=== PATIENT | female | born 1970 | race Caucasian/White ===

== ENCOUNTER → 2016-08-07 | Outpatient (CLI) | payer OTHER ==
[~2016-08-07] MED LIST: AMIT25TA9 PO; AMLO-114 PO; AMPH10TA2 PO; ASPEC81 PO; ATV5 PO; CTP/1 PO; DRGTP25 TD; HYDR-5688 PO; HYG/25 PO; LSN40 PO; MTR600 PO; NEBI10TA2 PO; OXYC-57 PO; PRAV20TA PO; SM350 PO; ZOLP5TAB PO
[2016-08-07 11:10] LABS: HEMATOCRIT 38.6 % (37-47); MEAN CELL VOLUME 92.3 fL (80-100); MEAN CORPUSCULAR HEMOGLOBIN 31.3 pg (25-34); MEAN CORPUSCULAR HGB CONC 33.9 g/dl (32-36); MEAN PLATELET VOLUME 11.1 fL (7.4-10.4); PLATELET COUNT 248 K/uL (130-400); RED BLOOD COUNT 4.18 M/uL (4.2-5.4); WHITE BLOOD COUNT 6.13 K/uL (4.8-10.8)
[2016-08-07 14:05] LABS: URINE COLLECTION TIME 24 HOURS; URINE SODIUM 24 HR 231 mmol/24 (40-220)
== END | disposition home or self-care (01) ==
LOC: C.LABBC 08:21
PROVIDERS: ATTEND Internal Medicine Nephrology
DX: I10 Essential (primary) hypertension (principal); G43.909 Migraine, unspecified, not intractable, without status migrainosus; E55.9 Vitamin D deficiency, unspecified; Z68.38 Body mass index [BMI] 38.0-38.9, adult

== ENCOUNTER 2017-05-19 00:32 | Inpatient (IN) | payer SELFPAY ==
[~2017-05-19] VITALS: Ht 167.6 cm; Wt 99.5 kg
[~2017-05-19 00:32] MED LIST changes: -AMIT25TA9 PO; -ATV5 PO; -DRGTP25 TD; -HYDR-5688 PO; -MTR600 PO; -OXYC-57 PO
[2017-05-19] MEDS ORDERED: ONDANSETRON INJ 2 MG/ML 2 ML VIAL IV STA (00:47)
[2017-05-19] MEDS ORDERED: MoRPHine SULFATE 10 MG/ML CARP/VIAL IV STA (00:47)
[2017-05-19] MEDS ORDERED: MoRPHine SULFATE 4 MG/ML 1 ML CARP\\VIAL ONE (00:52)
[2017-05-19] MEDS ORDERED: MoRPHine SULFATE 2 MG/ML CARP ONE (00:52)
[2017-05-19] MEDS ORDERED: KETOROLAC TROMETHAMINE 30 MG/ML VIAL IV STA (01:17)
[2017-05-19] MEDS ORDERED: FENTANYL CITRATE INJ 50 MCG/1 ML 2 ML VIAL IV ONE (01:30)
[2017-05-19] MEDS ORDERED: CYCLOBENZAPRINE HCL 5 MG TAB PO STA (02:29)
[2017-05-19] MEDS ORDERED: ACETAMINOPHEN 325 MG TAB PO PRN (04:00)
[2017-05-19] MEDS ORDERED: ONDANSETRON INJ 2 MG/ML 2 ML VIAL IV PRN (04:00)
[2017-05-19] MEDS ORDERED: POLYETHYLENE (MIRALAX) 17 GM PACK PO PRN (04:00)
[2017-05-19] MEDS ORDERED: ALUMINUM/MAGNESIUM/SIMETH (MAALOX MAX) 30 ML UDC PO PRN (04:00)
[2017-05-19] MEDS ORDERED: SODIUM CHLORIDE 0.9% 1000ML 1,000 ML IV SCH (04:00)
[2017-05-19] MEDS ORDERED: MAGNESIUM HYDROXIDE SUSP 30 ML UDC PO PRN (04:00)
[2017-05-19] MEDS ORDERED: CLONIDINE HCL 0.1 MG TAB PO PRN (04:00)
[2017-05-19] MEDS ORDERED: HYDROmorphone INJ 1 MG/ML SYR IV STA (04:20)
--- NOTE | 2017-05-19 04:38 | History and Physical ---
History & Physical Date & Time of Service: May 19, 2017 at 04:22 Chief Complaint: FALL Primary Care Physician: Ekaterina Milian C.R.NDakotahPDakotah History of Present Illness Source: patient 46 y/o F Hx HTN, HPL, CVA - presents following a slip and fall onto her L side leading to severe pain which is most prominent over her L lower gluteal area. She cannot presently ambulate due to the pain and is having difficulty getting comfortable in any position. She denies any symptoms preceding her fall such as CP, palpitations or lightheadedness. A pelvic XR is presently equivocal for an inferior pelvic fracture and clinical exam may be more consistent with a muscle or tendon injury. 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, between nursing jobs presently Smoking Status: Current Every Day Smoker Drug Use: none Marital Status: Housing status: lives with family Occupational Status: employed Allergies Coded Allergies: Moxifloxacin (Verified Allergy, Severe, anaphylatic, 07/09/16) Quinolones (Unverified Allergy, Severe, ANAPHYLAXIS, 07/09/16) Home Medications Scheduled Amlodipine (Norvasc), 10 MG PO DAILY Amphetamine-Dextroamphetamine 10MG (Adderall 10MG), 1 TAB PO DAILY Aspirin (Aspirin EC Low Dose), 81 MG PO QAM Chlorthalidone (Hygroton), 25 MG PO QAM Lisinopril (Lisinopril), 20 MG PO BID Nebivolol Hcl (Bystolic), 10 MG PO DAILY Pravastatin (Pravachol ), 20 MG PO HS Scheduled PRN Carisoprodol (Carisoprodol), 350 MG PO Q8H PRN for muscle pain/headache Clonidine Hcl (Catapres), 0.1 MG PO BID PRN for PRN Zolpidem Tartrate (Ambien), 5-10 MG PO HS PRN for Sleep Review of Systems Constitutional: No fever, No chills, No sweats Eyes: No worsening of vision ENT: No hearing loss, No unusual epistaxis, No nasal symptoms Respiratory: No cough, No sputum, No wheezing Cardiovascular: No chest pain, No orthopnea, No PND Abdomen: No pain, No nausea, No vomiting Musculoskeletal: + joint pain, + muscle pain (sever LE pain as above) Genitourinary - Female: No dysuria, No urinary frequency Neurologic: No memory loss, No paralysis, No weakness Psychiatric: No depression symptoms Endocrine: No fatigue Hematologic / Lymphatic: No abnormal bleeding/bruising Integumentary: No rash Allergic / Immunologic: No environmental allergies Physical Exam Vital Signs Date Time Temp Pulse Resp B/P (MAP) Pulse Ox O2 Delivery O2 Flow Rate FiO2 05/19/17 02:39 60 20 168/95 96 Room Air 05/19/17 01:28 82 20 151/97 98 Room Air 05/19/17 00:41 37.1 95 20 207/117 96 Room Air General Appearance: WD/WN, no apparent distress Head: normocephalic Eyes: normal inspection ENT: normal ENT inspection, pharynx normal Neck: supple, no JVD Respiratory/Chest: chest non-tender, lungs clear, normal breath sounds Cardiovascular: regular rate, rhythm, no edema, no gallop Abdomen/GI: normal bowel sounds, non tender, soft Back: normal inspection, no CVA tenderness Extremities/Musculoskelatal: + pertinent finding (Pain on any movement of L leg ) 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 She cannot presently ambulate due to the pain and is having difficulty getting comfortable in any position. She denies any symptoms preceding her fall such as CP, palpitations or lightheadedness. A pelvic XR is presently equivocal for an inferior pelvic fracture and clinical exam may be more consistent with a muscle or tendon injury. 1) Fall and pelvic/gluteal injury - We may need an MRI for further evaluation. To avoid additional expenses however, we will consult orthopedics to determine if additional imaging is needed and advise on the appropriate study. She will be provided with adequate pain control and may need PT/OT or rehab if she is unable to recover mobility in the short-term. 2) HTN - has been difficult to control - will remain on all current meds pending surgery eval 3) HPL - cont 4) Smoker - cessation advice prior to DC Full Code - SCDs Total time for this admit including review of labs, meds, imaging - discussion with pt and ER attending - 33min Level of Care Med/Surg Resuscitation Status FULL RESUSCITATION VTE Prophylaxis VTE Risk Assessment Done? Y/N: Yes Risk Level: Low Given or contraindicated: SCD's
[2017-05-19] MEDS ORDERED: AMIT25TA9 PO (04:58)
[2017-05-19] MEDS ORDERED: IV FLUIDS COMPLETED PRN (05:00)
[2017-05-19] MEDS ORDERED: OXYCODONE/ACETAMINOPHEN 10/325MG TAB PO ONE (05:30)
[2017-05-19 06:17] VITALS: BP 142/76; PULSE 66; TEMP 36.4; O2SAT 96; Ht 167.6 cm; Wt 99.5 kg
[2017-05-19 07:14] VITALS: BP 115/73; PULSE 58; TEMP 36.6; O2SAT 96
[2017-05-19 08:00] VITALS: O2SAT 96
[2017-05-19] MEDS ORDERED: PNEUMOCOCCAL POLYSACCHARIDES 25 MCG/0.5 ML VIAL/SYR IM. ONE (08:00)
[2017-05-19] MEDS ORDERED: PNEUMOCOCCAL ADMINISTRATION CHARGE ONE (08:00)
--- NOTE | 2017-05-19 08:01 | DIAGNOSTIC IMAGING REPORT ---
PELVIS 1 OR 2 VIEW ROUTINE CLINICAL HISTORY: eval left hemipelvis for fracture. Left hip pain. COMPARISON STUDY: None. FINDINGS: No acute fracture or dislocation within the pelvis or hips. The sacrum appears intact. Soft tissues are unremarkable. Lucency overlying the medial aspect of the left inferior pubic ramus appears to be due to overlying soft tissue. IMPRESSION: No acute fracture or dislocation within the pelvis or hips. Electronically signed by: Zhou Le M.D. 05/19/2017 8:00 AM Dictated Date/Time: 05/19/2017 7:59 AM
--- NOTE | 2017-05-19 08:53 | EMERGENCY ROOM VISIT NOTE ---
History Report prepared by Isabella: Princess Aaron Under the Supervision of: Dr. Gem Sosa D.O. First contact with patient: 00:36 Chief Complaint: FALL Stated Complaint: FALL History of Present Illness The patient is a 46 year old female who presents to the Emergency Room with complaints of an episode of a fall occurring just prior to arrival. The patient reports that she went to let the dog out and slipped. She reports her left leg slid out and right leg stayed put. She reports it was similar to falling into a split. The patient states that it is worse with movement. She reports that she cannot straighten her leg or turn on her side. She states that the pain is in the back of her leg under her butt cheek. She states it shoots down her leg. The patient denies pain in her foot, ankle, hip, and abdomen. She states that she did not hit her head. She notes that she takes Lisinopril. She reports that she last ate 7 hours ago and had a little bit of water to drink since then. Source of History: patient Onset: prior to arrival Position: other (global) Quality: other (shooting) Timing: other (episode) Modifying Factors (Worsening): movement Associated Symptoms: No abdominal pain Note: The patient denies pain in her ankle, foot, and knee. Review of Systems See HPI for pertinent positives & negatives. A total of 10 systems reviewed and were otherwise negative. Past Medical & Surgical Medical Problems: (1) Anxiety (2) Anxiety attack (3) ARF (acute renal failure) (4) Asthma, Unspecified (5) Cervical cancer (6) Chest pain (7) Depression (8) Depression (9) Depression (10) Epistaxis, recurrent (11) Hyperlipidemia Nec/Nos (12) Hypertension Nos (13) PCOS (polycystic ovarian syndrome) (14) Pelvic fracture (15) Stress (16) Uncontrolled hypertension, stage 1 (17) Uterine cancer Surgical Problems: (1) H/O: hysterectomy (2) History of breast mammoplasty (3) Hx of cholecystectomy (4) S/P tonsillectomy and adenoidectomy Family History Cancer Diabetes mellitus Heart disease Hypertension Kidney disease Kidney stones Lung disease Social History Smoking Status: Current Every Day Smoker Alcohol Use: none Drug Use: none Marital Status: Housing Status: lives with family Occupation Status: employed Current/Historical Medications Scheduled Amlodipine (Norvasc), 10 MG PO DAILY Amphetamine-Dextroamphetamine 10MG (Adderall 10MG), 1 TAB PO DAILY Aspirin (Aspirin EC Low Dose), 81 MG PO QAM Chlorthalidone (Hygroton), 25 MG PO QAM Lisinopril (Lisinopril), 20 MG PO BID Nebivolol Hcl (Bystolic), 10 MG PO DAILY Pravastatin (Pravachol ), 20 MG PO HS Scheduled PRN Amitriptyline Hcl (Elavil), 25 MG PO HS PRN for Migraine Carisoprodol (Carisoprodol), 350 MG PO Q8H PRN for muscle pain/headache Clonidine Hcl (Catapres), 0.1 MG PO BID PRN for PRN Zolpidem Tartrate (Ambien), 5-10 MG PO HS PRN for Sleep Allergies Coded Allergies: Moxifloxacin (Verified Allergy, Severe, anaphylatic, 07/09/16) Quinolones (Unverified Allergy, Severe, ANAPHYLAXIS, 07/09/16) Physical Exam Vital Signs Date Time Temp Pulse Resp B/P (MAP) Pulse Ox O2 Delivery O2 Flow Rate FiO2 05/19/17 03:30 20 20 165/97 99 Nasal Cannula 2.0 05/19/17 02:39 60 20 168/95 96 Room Air 05/19/17 01:28 82 20 151/97 98 Room Air 05/19/17 00:41 37.1 95 20 207/117 96 Room Air Physical Exam Heart: Tachycardic rate and regular rhythm. There is a normal S1 and S2 with no murmurs, clicks, or gallops appreciated. Lungs: Clear to auscultation bilaterally with no wheezes, rales, or rhonchi. Abdomen: Soft, completely nontender, nondistended, with good bowel sounds. There are no palpable pulsatile masses or hepatosplenomegaly. There is no guarding, rigidity, or rebound noted. Extremities: The patient holds the left hip and flexion as well as the left knee in flexion for comfort. No evidence of cyanosis, clubbing, or edema. There are easily palpable peripheral pulses. Severe pain in the area of the proximal insertion of hamstrings on the left. Skin: warm and dry with good turgor and no rashes. Medical Decision & Procedures ER Provider Diagnostic Interpretation: PELVIS X-RAY: Results were interpreted by me. No obvious fractures identified. Medications Administered Medications (Trade) Dose Ordered Sig/Mayur Route Start Time Stop Time Status Last Admin Dose Admin Ondansetron HCl (Zofran Inj) 4 mg NOW STAT IV 05/19/17 00:47 05/19/17 00:49 DC 05/19/17 00:56 4 MG Morphine Sulfate (MoRPHine SULFATE INJ) 2 mg STK-MED ONCE .ROUTE 05/19/17 00:52 05/19/17 00:53 DC 05/19/17 00:57 2 MG Morphine Sulfate (MoRPHine SULFATE INJ) 4 mg STK-MED ONCE .ROUTE 05/19/17 00:52 05/19/17 00:53 DC 05/19/17 00:56 4 MG Ketorolac Tromethamine (Toradol Inj) 30 mg NOW STAT IV 05/19/17 01:17 05/19/17 01:18 DC 05/19/17 01:25 30 MG Fentanyl Citrate (Fentanyl Inj) 100 mcg NOW ONCE IV 05/19/17 01:30 05/19/17 01:31 DC 05/19/17 01:26 100 MCG Cyclobenzaprine HCl (Flexeril Tab) 10 mg NOW STAT PO 05/19/17 02:29 05/19/17 02:31 DC 05/19/17 02:36 10 MG Procedure 0047: Ordered Zofran Inj 4 mg IV. 0052: Ordered Morphine Sulfate 4 mg IV, Morphine Sulfate 2 mg IV. 0117: Ordered Toradol Inj 30 mg IV. 0130: Ordered Fentanyl Inj 100 mcg IV. 0229: Ordered Flexeril Tab 10 mg PO. ED Course 0044: Past medical records reviewed. The patient was evaluated in room B8. A complete history and physical exam was performed. 0047: Ordered Zofran Inj 4 mg IV. 0052: Ordered Morphine Sulfate 4 mg IV, Morphine Sulfate 2 mg IV. 0117: Ordered Toradol Inj 30 mg IV. 0130: Ordered Fentanyl Inj 100 mcg IV. 0139: I went to reevaluate the patient and she is currently in x-ray. 0211: I reevaluated the patient and she has some pain relief. I went over the x- ray with her. She has exquisite tenderness at the base of the left buttock. There is no ecchymosis. I discussed the possibility of having an MRI of the left lower extremity but the patient declined stating that she does not have insurance at this time. She would like to go home. 0229: Ordered Flexeril Tab 10 mg PO. 0311: I reevaluated the patient and she continues to have severe pain. I do not think that the patient be discharged as she would not be able to ambulate. 0418: Discussed the patient's case with Dr. Cano. The patient will be evaluated for further management. Medical Decision This is a 46-year-old female patient presents to the emergency department with severe proximal posterior left lower extremity pain. Differential diagnoses include pelvis fracture, hamstring rupture, femur fracture. The patient slipped on will while wearing slippers into a split position. She had very sudden and severe onset of pain just needs the left buttock over the proximal hamstring on the left. On physical exam, it seems consistent with an acute rupture of the left hamstring. On x-ray, there were no obvious fractures. We could not get the patient comfortable and therefore she required inpatient care and orthopedic evaluation. Consults Time Called: 330 Consulting Physician: Dr. Cano Returned Call: [phone] Discussed the patient's case with Dr. Cano. The patient will be evaluated for further management. Impression Primary Impression: Lower extremity pain, left Additional Impression: Hamstring tear Scribe Attestation The scribe's documentation has been prepared under my direction and personally reviewed by me in its entirety. I confirm that the note above accurately reflects all work, treatment, procedures, and medical decision making performed by me. Departure Information Dispostion Being Evaluated By Hospitalist Referrals No Doctor, Assigned (PCP) Patient Instructions My [facility] Problem Qualifiers
[2017-05-19] MEDS: LISINOPRIL 20 MG TAB PO SCH ×2 (09:00→21:37)
[2017-05-19] MEDS: AMLODIPINE BESYLATE 5 MG TAB PO SCH (09:00)
[2017-05-19] MEDS: NEBIVOLOL HCL 5 MG TAB PO SCH (09:00)
[2017-05-19] MEDS: CHLORTHALIDONE 25 MG TAB PO SCH (09:00)
[2017-05-19] MEDS: ASPIRIN 81 MG ECTAB PO SCH (09:17)
--- NOTE | 2017-05-19 09:31 | Medical Consult ---
Consultation Note Date of Service May 19, 2017. Consultation Note CHIEF COMPLAINT: Left hip pain. HISTORY OF PRESENT ILLNESS: Ayesha is a pleasant 46-year-old female, who slipped and fell last evening injuring her left lower leg. She has an extensive medical history and notes that this is the most painful injury she is ever had. She was unable to get up and had initial pain pointing to the posterior aspect of her hip and thigh with radiation all the way down to her foot. Currently she just has pain if she attempts to extend her knee, straightening out the leg. She is more comfortable with the blankets piled up under her leg. She went to the emergency room where an x-ray was obtained and she was admitted for pain control. I was consult did to rule out a fracture. PAST MEDICAL HISTORY: (1) Anxiety (2) Asthma, Unspecified (3) Cervical cancer (4) CVA - no residuals (5) Depression (6) Epistaxis, recurrent (7) Hyperlipidemia Nec/Nos (8) Hypertension Nos (9) PCOS (polycystic ovarian syndrome) (10) Uterine cancer PAST SURGICAL HISTORY: (1) H/O: hysterectomy (2) History of breast mammoplasty (3) Hx of cholecystectomy (4) S/P tonsillectomy and adenoidectomy FAMILY HISTORY: Cancer, Diabetes mellitus, Heart disease, Hypertension, Kidney disease, Kidney stones, Lung disease SOCIAL HISTORY: -alcohol, between nursing jobs presently. Smoking Status: Current Every Day Smoker Drug Use: none Marital Status: Housing status: lives with family ALLERGIES: Moxifloxacin (Verified Allergy, Severe, anaphylatic, 07/09/16) Quinolones (Unverified Allergy, Severe, ANAPHYLAXIS, 07/09/16) MEDICATIONS: Home Scheduled: Amlodipine (Norvasc), 10 MG PO DAILY Amphetamine-Dextroamphetamine 10MG (Adderall 10MG), 1 TAB PO DAILY Aspirin (Aspirin EC Low Dose), 81 MG PO QAM Chlorthalidone (Hygroton), 25 MG PO QAM Lisinopril (Lisinopril), 20 MG PO BID Nebivolol Hcl (Bystolic), 10 MG PO DAILY Pravastatin (Pravachol ), 20 MG PO HS Scheduled PRN Carisoprodol (Carisoprodol), 350 MG PO Q8H PRN for muscle pain/headache Clonidine Hcl (Catapres), 0.1 MG PO BID PRN for PRN Zolpidem Tartrate (Ambien), 5-10 MG PO HS PRN for Sleep REVIEW OF SYSTEMS: The patient was feeling in her usual state of health before the fall last evening. The ER A 10-point review of systems is noted in the shared Hospital medical record. PHYSICAL EXAM: Patient is in no acute distress breathing easily at 18 breaths per minute. The patient resting comfortably in her hospital bed. They have an appropriate mood and affect. They weigh 99.5 kg and are 167.6 cm tall. Focusing on her left lower extremity, she has blankets piled up keeping her knee flexed as well as her hip. Her sensation to light touch is intact distally , her motor to her gastrocsoleus, tibialis anterior, and EHL is 5/5. Her calf is soft and nontender. She has no pain in the groin with gentle range of motion of her hip, but does have pain along the course of her hamstrings. There is no bruising. Unable to palpate a defect in the hamstring. RADIOGRAPHS: AP pelvis shows no evidence of acute fracture or dislocation. IMPRESSION: Left hamstring strain. PLAN: After a lengthy discussion with the patient today regarding my above clinical findings, as well as reviewing her radiograph, she will initially be treated conservatively with ice (20 minutes on, 40 minutes off), anti- inflammatories, and pain medicine. Additional x-rays AP and lateral of the left hip will be obtained to ensure that there is no fracture. She will likely require bracing to help keep for her knee flexed. In addition we discussed outpatient studies they could be performed either MRI which is more expensive versus ultrasound, understanding that she is currently between jobs and is uninsured. We will have social welfare research worker talk to her as well to see if she qualifies for COBRA or medical assistance. Once the x-rays are evaluated and determined to be negative and she obtains her brace, she could start PT/OT. I will continue to follow the patient on she is in the hospital. The patient understood all my instructions and explanation; all their questions were satisfactorily addressed. Thank you for allowing me to participate in this patient's care.
[2017-05-19] MEDS: HYDROmorphone INJ 0.5 MG/0.5 ML SYR IV PRN ×4 (09:36→22:57)
--- NOTE | 2017-05-19 10:04 | Progress Note ---
Subjective Date of Service: May 19, 2017. Subjective Pt evaluation today including: conversation w/ patient, physical exam, lab review, review of studies, conversation w/ jewelry consultant, review of inpatient medication list Pain: moderate to severe at times PO Intake: adequate Voiding: no voiding problems patient laying in bed, feels better with pillows and blankets under left leg appreciate consultation from Dr. Dickens, plan for hip x-rays, leg brace, ice, ibuprofen, PT/OT other than left leg and buttock pain, patient doing well, no chest pain or dyspnea Problem List Medical Problems: (1) BJ (acute kidney injury) Status: Acute (2) Asthma, Unspecified Status: Chronic (3) Chest tightness Status: Acute (4) Hamstring tear Status: Acute (5) HTN (hypertension) Status: Acute (6) Hyperlipidemia Nec/Nos Status: Chronic (7) Hypertension Status: Acute (8) Hypertension Nos Status: Chronic (9) Hypotension Status: Acute (10) Lower extremity pain, left Status: Acute (11) PCOS (polycystic ovarian syndrome) Status: Chronic (12) Syncope Status: Acute Review of Systems Musculoskeletal: + joint pain (left hip and buttock and left posterior thigh) All Other Systems: Reviewed and Negative Medications Current Inpatient Medications Medications (Trade) Dose Ordered Sig/Mayur Route Start Time Stop Time Status Last Admin Dose Admin Acetaminophen (Tylenol Tab) 650 mg Q4H PRN PO 05/19/17 04:00 06/18/17 03:59 Al Hydrox/Mg Hydrox/Simethicone (Maalox Max Susp) 15 ml Q4H PRN PO 05/19/17 04:00 06/18/17 03:59 Magnesium Hydroxide (Milk Of Magnesia Susp) 30 ml Q6H PRN PO 05/19/17 04:00 06/18/17 03:59 Polyethylene (Miralax Powder Packet) 17 gm DAILY PRN PO 05/19/17 04:00 06/18/17 03:59 Zolpidem Tartrate (Ambien Tab) 5 mg HSZ PRN PO 05/19/17 04:00 06/18/17 03:59 Ondansetron HCl (Zofran Inj) 4 mg Q6H PRN IV 05/19/17 04:00 06/18/17 03:59 Hydromorphone HCl (Dilaudid Inj) 0.5 mg Q3H PRN IV 05/19/17 04:00 06/02/17 03:59 05/19/17 09:36 0.5 MG Amlodipine Besylate (Norvasc Tab) 10 mg DAILY PO 05/19/17 09:00 06/18/17 08:59 Aspirin (Ecotrin Tab) 81 mg QAM PO 05/19/17 09:00 06/18/17 08:59 05/19/17 09:17 81 MG Carisoprodol (Soma Tab) 350 mg Q8H PRN PO 05/19/17 04:00 06/18/17 03:59 Chlorthalidone (Hygroton Tab) 25 mg QAM PO 05/19/17 09:00 06/18/17 08:59 Clonidine HCl (Catapres Tab) 0.1 mg BID PRN PO 05/19/17 04:00 06/18/17 03:59 Lisinopril (Zestril Tab) 20 mg BID PO 05/19/17 09:00 06/18/17 08:59 Pravastatin Sodium (Pravachol Tab) 20 mg HS PO 05/19/17 21:00 06/18/17 20:59 Nebivolol (Bystolic Tab) 10 mg DAILY PO 05/19/17 09:00 06/18/17 08:59 Sodium Chloride 1,000 ml @ 100 mls/hr Q10H IV 05/19/17 04:00 05/19/17 13:59 05/19/17 05:46 100 MLS/HR Miscellaneous (Iv Fluids Completed) 1 ea PRN PRN N/A 05/19/17 05:00 05/19/18 04:59 Oxycodone/ Acetaminophen (Percocet 5-325mg Tab) 1 tab Q4H PRN PO 05/19/17 09:15 06/02/17 09:14 Ibuprofen (Motrin Tab) 600 mg TID PO 05/19/17 14:00 06/02/17 23:55 Objective Vital Signs Date Time Temp Pulse Resp B/P (MAP) Pulse Ox O2 Delivery O2 Flow Rate FiO2 05/19/17 07:14 36.6 58 18 115/73 (87) 96 Room Air 05/19/17 06:17 36.4 66 18 142/76 96 Room Air 05/19/17 04:50 78 20 141/82 96 Room Air 05/19/17 03:30 20 20 165/97 99 Nasal Cannula 2.0 05/19/17 02:39 60 20 168/95 96 Room Air 05/19/17 01:28 82 20 151/97 98 Room Air 05/19/17 00:41 37.1 95 20 207/117 96 Room Air Physical Exam General Appearance: WD/WN, no apparent distress ENT: normal ENT inspection, hearing grossly normal, pharynx normal Neck: supple, no adenopathy, no JVD, trachea midline Respiratory/Chest: chest non-tender, lungs clear, normal breath sounds, no respiratory distress, no accessory muscle use Cardiovascular: regular rate, rhythm, no edema, no gallop, no JVD, no murmur Abdomen: normal bowel sounds, non tender, soft, no organomegaly Extremities: normal range of motion, non-tender, normal inspection, no pedal edema, no calf tenderness Neurologic/Psychiatric: metal drawer II-XII nml as tested, no motor/sensory deficits, alert, normal mood/affect, oriented x 3 Skin: normal color, warm/dry, no rash Assessment and Plan 46 y/o F Hx HTN, HPL, CVA - presents following a slip and fall onto her L side leading to severe pain which is most prominent over her L lower gluteal area. She cannot presently ambulate due to the pain and is having difficulty getting comfortable in any position. She denies any symptoms preceding her fall such as CP, palpitations or lightheadedness. A pelvic XR is presently equivocal for an inferior pelvic fracture and clinical exam may be more consistent with a muscle or tendon injury. 1) Fall and pelvic/gluteal injury appreciate ortho consult from Dr. Dickens, likely hamstring strain treat conservatively with ice, ibuprofen, Percocet PRN, left brace to keep knee flexed and then PT/OT can consider further imaging as outpatient with MRI vs ultrasound if needed, but need to keep cost in mind, between jobs 2) HTN - will likely be elevated due to stress and pain, issues with hypertension in the past continue Norvasc, Lisinopril, Bystolic, Chlorthalidone Hydralazine PRN 3) HPL - cont statin therapy 4) Smoker - cessation advice prior to DC
--- NOTE | 2017-05-19 10:14 | DIAGNOSTIC IMAGING REPORT ---
LEFT HIP 2 VIEWS HISTORY: L hip pain COMPARISON: None. FINDINGS: Suboptimal evaluation the left hip due to the patient's body habitus and overlying soft tissue. No definite acute fracture or dislocation within the left hip. The visualized pelvic bones appear intact. Soft tissues are unremarkable. No radiopaque foreign bodies. IMPRESSION: No definite acute fracture or dislocation within the left hip. Electronically signed by: Zhou Le M.D. 05/19/2017 10:13 AM Dictated Date/Time: 05/19/2017 10:08 AM
[2017-05-19] MEDS: CARISOPRODOL 350 MG TAB PO PRN ×2 (13:03→22:57)
[2017-05-19] MEDS: IBUPROFEN 600 MG TAB PO SCH ×2 (13:39→21:36)
[2017-05-19] MEDS ORDERED: GADAVIST IV PRN (15:15)
[2017-05-19 15:43] VITALS: BP 99/62; PULSE 53; TEMP 36.8; O2SAT 96
--- NOTE | 2017-05-19 15:46 | DIAGNOSTIC IMAGING REPORT ---
MRI OF THE LEFT THIGH WITH AND WITHOUT CONTRAST CLINICAL HISTORY: Suspected hamstring injury. COMPARISON STUDY: Left hip radiographs May 19, 2017. TECHNIQUE: Utilizing 1.5 Jagruti magnet and dedicated coil, multiplanar, multi echo imaging of the left thigh was performed before and after intravenous administration of 9 cc of Gadavist. FINDINGS: Note is made of extensive edema with suspected hemorrhage along the proximal left hamstring tendon which involves the biceps femoris, semitendinosus and semimembranosus. Tendons are avulsed from the ischial tuberosity and retracted 5 cm inferiorly. There is extensive associated intramuscular edema. No fracture is identified on this examination. Alignment of the left hip is anatomic. There is no left hip joint effusion. There is no suspicious marrow replacement or marrow edema. IMPRESSION: Findings consistent with proximal left hamstrings tendon rupture, as described above. Tendons retracted 5 cm inferiorly with extensive associated edema/hemorrhage. Electronically signed by: Irving Brice M.D. 05/19/2017 3:44 PM Dictated Date/Time: 05/19/2017 3:37 PM
[2017-05-19] MEDS: OXYCODONE/ACETAMINOPHEN 5-325 TAB PO PRN (18:44)
[2017-05-19] MEDS: ZOLPIDEM TARTRATE 5 MG TAB PO PRN (18:44)
[2017-05-19] MEDS: PRAVASTATIN SOD 20 MG TAB PO SCH (21:37)
[2017-05-19 23:10] VITALS: BP 120/76; PULSE 69; TEMP 37.1; O2SAT 96
[2017-05-20] MEDS: ZOLPIDEM TARTRATE 5 MG TAB PO PRN ×2 (00:37→23:06)
[2017-05-20] MEDS: OXYCODONE/ACETAMINOPHEN 5-325 TAB PO PRN ×3 (00:37→11:48)
[2017-05-20] MEDS ORDERED: HYDROmorphone INJ 1 MG/ML SYR IV STA (02:42)
[2017-05-20] MEDS: HYDROmorphone INJ 0.5 MG/0.5 ML SYR IV PRN ×3 (07:39→21:20)
[2017-05-20 07:50] VITALS: BP 112/65; PULSE 67; TEMP 36.9; O2SAT 93
[2017-05-20] MEDS: NEBIVOLOL HCL 5 MG TAB PO SCH ×2 (09:00→09:03)
[2017-05-20] MEDS: AMLODIPINE BESYLATE 5 MG TAB PO SCH ×2 (09:00→09:03)
[2017-05-20] MEDS: LISINOPRIL 20 MG TAB PO SCH ×3 (09:00→21:19)
[2017-05-20] MEDS: ASPIRIN 81 MG ECTAB PO SCH (09:02)
[2017-05-20] MEDS: CHLORTHALIDONE 25 MG TAB PO SCH (09:02)
[2017-05-20] MEDS: IBUPROFEN 600 MG TAB PO SCH ×3 (09:04→21:19)
--- NOTE | 2017-05-20 10:15 | Orthopedic Progress Note ---
Orthopedic Progress Note Date of Service May 20, 2017. Subjective Post OP Day: HD #2 Reports: complaints (Left buttock and patellar pain) Additional Notes: Left knee and fell: No effusion. No tenderness to palpation about the patella or noted defects. Patient able to actively flex and extend the knee today. Objective calves soft nontender, N/V intact Date Time Temp Pulse Resp B/P (MAP) Pulse Ox O2 Delivery O2 Flow Rate FiO2 05/20/17 08:00 Room Air 05/20/17 07:50 36.9 67 18 112/65 (81) 93 Room Air 05/19/17 23:59 Room Air 05/19/17 23:10 37.1 69 16 120/76 (91) 96 Room Air 05/19/17 15:43 36.8 53 16 99/62 (74) 96 05/19/17 15:41 Room Air Additional Notes: RADIOGRAPHS: AP and lateral left hip, unremarkable. MRI: Left lower extremity, shows a avulsion tears of the proximal hamstring tendons (biceps femoris, semimembranosus, and semitendinosus) with retraction approximately 5 cm. Assessment & Plan Assessment: Left proximal hamstring tendon a avulsion was of all 3 tendons with 5 cm of retraction. Left knee pain likely secondary to positioning versus contusion. Plan: After a lengthy discussion with the patient today regarding my above clinical findings, as well as reviewing her imaging, her treatment options of conservative versus surgical intervention were discussed. Due to 3 tendons being involved and the significant retraction, did recommend surgical repair. She understands that this could be done within the next 2-4 weeks, but sooner would be better than later. If she were to elect for conservative treatment, she could expect continued knee flexion weakness, deformity, possible sciatic nerve irritation, and continued pain. She seems to be leaning towards having it surgically repaired. Her biggest concern are costs and is looking at other options back in [place]. I did obtain informed consent, which she signed today. She has been placed on the add-on list in case she decides to have this repaired by myself. She will be made nothing by mouth after midnight. The patient understood all my instructions and explanation; all their questions were satisfactorily addressed.
--- NOTE | 2017-05-20 13:46 | Progress Note ---
Progress Note Date of Service May 20, 2017. Progress Note I spoke with patient over the phone. She wishes to cancel surgery with Dr. Dickens on 05/21/17 and return closer to home to have surgery where she will have more resources available post-operatively. I advised if we can be of assistance any further we would be happy to assist accordingly. Appreciative of phone call and care thus far.
[2017-05-20] MEDS: CARISOPRODOL 350 MG TAB PO PRN ×2 (14:12→23:06)
[2017-05-20] MEDS ORDERED: LORAZEPAM 1 MG TAB PO STA (14:22)
[2017-05-20] MEDS ORDERED: FENTANYL 25 MCG/HR TDSY TD SCH (15:00)
[2017-05-20 15:21] VITALS: BP 139/67; PULSE 71; TEMP 36.7; O2SAT 97
[2017-05-20] MEDS: CHECK FENTANYL PATCH PLACEMENT SCH ×2 (15:39→23:31)
--- NOTE | 2017-05-20 16:19 | Progress Note ---
Subjective Date of Service: May 20, 2017. Subjective Pt evaluation today including: conversation w/ patient, conversation w/ family , physical exam, lab review, review of studies, conversation w/ strategy planning consultant, review of inpatient medication list Pain: severe pain in left leg PO Intake: adequate Voiding: no voiding problems patient still with severe pain in left leg, increased Percocet to 2 tabs q4, still not controlled discussed adding Fentanyl patch, she agreed with plan reviewed MRI results, complete rupture of all 3 heads of the hamstring with hemorrhage orthopedic surgery recommending surgical repair discussed with patient and patient's sister, would like to have surgery done in [place] plan to control pain to the point that she could ride in a car PT/OT performed, brace on left knee patient tearful and anxious at times, visited later in the day, resting more comfortably Problem List Medical Problems: (1) BJ (acute kidney injury) Status: Acute (2) Asthma, Unspecified Status: Chronic (3) Chest tightness Status: Acute (4) Hamstring tear Status: Acute (5) HTN (hypertension) Status: Acute (6) Hyperlipidemia Nec/Nos Status: Chronic (7) Hypertension Status: Acute (8) Hypertension Nos Status: Chronic (9) Hypotension Status: Acute (10) Lower extremity pain, left Status: Acute (11) PCOS (polycystic ovarian syndrome) Status: Chronic (12) Syncope Status: Acute Review of Systems Constitutional: + weakness, + fatigue Musculoskeletal: + joint pain (left hip), + muscle pain (left posterior thigh, proximal due to hamstring rupture) Psychiatric: + anxiety All Other Systems: Reviewed and Negative Medications Current Inpatient Medications Medications (Trade) Dose Ordered Sig/Mayur Route Start Time Stop Time Status Last Admin Dose Admin Acetaminophen (Tylenol Tab) 650 mg Q4H PRN PO 05/19/17 04:00 06/18/17 03:59 Al Hydrox/Mg Hydrox/Simethicone (Maalox Max Susp) 15 ml Q4H PRN PO 05/19/17 04:00 06/18/17 03:59 Magnesium Hydroxide (Milk Of Magnesia Susp) 30 ml Q6H PRN PO 05/19/17 04:00 06/18/17 03:59 Polyethylene (Miralax Powder Packet) 17 gm DAILY PRN PO 05/19/17 04:00 06/18/17 03:59 Zolpidem Tartrate (Ambien Tab) 5 mg HSZ PRN PO 05/19/17 04:00 06/18/17 03:59 05/20/17 00:37 5 MG Ondansetron HCl (Zofran Inj) 4 mg Q6H PRN IV 05/19/17 04:00 06/18/17 03:59 Hydromorphone HCl (Dilaudid Inj) 0.5 mg Q3H PRN IV 05/19/17 04:00 06/02/17 03:59 05/20/17 11:49 0.5 MG Amlodipine Besylate (Norvasc Tab) 10 mg DAILY PO 05/19/17 09:00 06/18/17 08:59 05/19/17 09:00 10 MG Aspirin (Ecotrin Tab) 81 mg QAM PO 05/19/17 09:00 06/18/17 08:59 05/20/17 09:02 81 MG Carisoprodol (Soma Tab) 350 mg Q8H PRN PO 05/19/17 04:00 06/18/17 03:59 05/20/17 14:12 350 MG Chlorthalidone (Hygroton Tab) 25 mg QAM PO 05/19/17 09:00 06/18/17 08:59 05/20/17 09:02 25 MG Clonidine HCl (Catapres Tab) 0.1 mg BID PRN PO 05/19/17 04:00 06/18/17 03:59 Lisinopril (Zestril Tab) 20 mg BID PO 05/19/17 09:00 06/18/17 08:59 05/19/17 09:00 20 MG Pravastatin Sodium (Pravachol Tab) 20 mg HS PO 05/19/17 21:00 06/18/17 20:59 Nebivolol (Bystolic Tab) 10 mg DAILY PO 05/19/17 09:00 06/18/17 08:59 05/19/17 09:00 10 MG Miscellaneous (Iv Fluids Completed) 1 ea PRN PRN N/A 05/19/17 05:00 05/19/18 04:59 Ibuprofen (Motrin Tab) 600 mg TID PO 05/19/17 14:00 06/02/17 23:55 05/20/17 14:10 600 MG Hydralazine HCl (Apresoline Tab) 25 mg Q8 PRN PO 05/19/17 10:15 11 10:14 Gadobutrol (Gadavist) 9 mmol UD PRN IV 05/19/17 15:15 05/23/17 15:14 Oxycodone/ Acetaminophen (Percocet 5-325mg Tab) Alternate with NSAI... Q4H PRN PO 05/20/17 10:45 06/02/17 09:14 05/20/17 11:48 2 TAB Fentanyl (Duragesic Patch) 25 mcg Q72H TD 05/20/17 15:00 06/03/17 14:59 05/20/17 15:25 25 MCG Miscellaneous (Fentanyl Patch Remove & Waste) 1 ea Q3D N/A 05/23/17 14:59 06/22/17 14:58 Miscellaneous Information (Check Fentanyl Patch Placement) 1 ea QS N/A 05/20/17 16:00 06/19/17 15:59 05/20/17 15:39 1 EA Lorazepam (Ativan Tab) 0.5 mg Q8 PRN PO 05/20/17 14:30 06/19/17 14:29 Objective Vital Signs Date Time Temp Pulse Resp B/P (MAP) Pulse Ox O2 Delivery O2 Flow Rate FiO2 05/20/17 15:21 36.7 71 18 139/67 (91) 97 Room Air 05/20/17 08:00 Room Air 05/20/17 07:50 36.9 67 18 112/65 (81) 93 Room Air 05/19/17 23:59 Room Air 05/19/17 23:10 37.1 69 16 120/76 (91) 96 Room Air Physical Exam General Appearance: no apparent distress, + obese Eyes: normal inspection, EOMI, sclerae normal Neck: supple, no adenopathy, no JVD, trachea midline Respiratory/Chest: chest non-tender, lungs clear, normal breath sounds, no respiratory distress, no accessory muscle use Cardiovascular: regular rate, rhythm, no edema, no gallop, no JVD, no murmur Abdomen: normal bowel sounds, non tender, soft, no organomegaly Extremities: normal inspection, no pedal edema, no calf tenderness, pelvis stable, + pertinent finding (severe pain in left posterior thigh, decreased active ROM with flexion) Neurologic/Psychiatric: cloth examiner II-XII nml as tested, no motor/sensory deficits, alert, oriented x 3, + pertinent finding (anxious and tearful) Skin: normal color, warm/dry, no rash Assessment and Plan 46 y/o F Hx HTN, HPL, CVA - presents following a slip and fall onto her L side leading to severe pain which is most prominent over her L lower gluteal area. She cannot presently ambulate due to the pain and is having difficulty getting comfortable in any position. She denies any symptoms preceding her fall such as CP, palpitations or lightheadedness. A pelvic XR is presently equivocal for an inferior pelvic fracture and clinical exam may be more consistent with a muscle or tendon injury. 1) Left hamstring rupture with hemorrhage orthopedic surgery recommending surgical repair, patient wants to have it done at [facility] pain control with Percocet 5/325mg 2 tabs q4 and start Fentanyl patch 25mcg q72 hours treat conservatively with ice, ibuprofen, left brace to keep knee flexed and then PT/OT 2) HTN - well controlled today continue Norvasc, Lisinopril, Bystolic, Chlorthalidone Hydralazine PRN 3) HPL - cont statin therapy 4) Smoker - cessation advice prior to DC 5) Anxiety - tearful and worried about her injury, medical expenses, needing rehab potentially Ativan 1mg PO given 0.5mg q8 PRN plan to d/c tomorrow with sister, go to [place] for surgery
[2017-05-20] MEDS: PRAVASTATIN SOD 20 MG TAB PO SCH (21:00)
[2017-05-20 23:34] VITALS: BP 124/72; PULSE 73; TEMP 36.8; O2SAT 94
[2017-05-21] MEDS: HYDROmorphone INJ 0.5 MG/0.5 ML SYR IV PRN (00:19)
[2017-05-21] MEDS: LORAZEPAM 0.5 MG TAB PO PRN ×2 (00:19→11:36)
[2017-05-21 07:49] VITALS: BP 124/67; PULSE 73; TEMP 37; O2SAT 94
--- NOTE | 2017-05-21 08:17 | Progress Note ---
Progress Note Date of Service May 21, 2017. Progress Note Spoke with the patient briefly. Understands we are signing-off orthopedically. Being discharged today to have surgery at [facility]. Brace is locked in flexion. Reports significant improvements with brace being placed yesterday. I advised if we can be of any further assistance please notify our office. Appreciative of care and recommendations.
[2017-05-21] MEDS: CHECK FENTANYL PATCH PLACEMENT SCH (08:57)
[2017-05-21] MEDS: IBUPROFEN 600 MG TAB PO SCH (09:00)
[2017-05-21] MEDS: NEBIVOLOL HCL 5 MG TAB PO SCH (09:00)
[2017-05-21] MEDS: LISINOPRIL 20 MG TAB PO SCH (09:01)
[2017-05-21] MEDS: AMLODIPINE BESYLATE 5 MG TAB PO SCH (09:01)
[2017-05-21] MEDS: CHLORTHALIDONE 25 MG TAB PO SCH (09:02)
[2017-05-21] MEDS: ASPIRIN 81 MG ECTAB PO SCH (09:03)
[2017-05-21] MEDS: OXYCODONE/ACETAMINOPHEN 5-325 TAB PO PRN (09:07)
[2017-05-21] MEDS ORDERED: ZOLP5TAB PO (10:36)
[2017-05-21] MEDS ORDERED: LSN40 PO (10:36)
[2017-05-21] MEDS ORDERED: AMLO-114 PO (10:36)
[2017-05-21] MEDS ORDERED: NEBI10TA2 PO (10:36)
[2017-05-21] MEDS ORDERED: SM350 PO (10:36)
[2017-05-21] MEDS ORDERED: CTP/1 PO (10:36)
[2017-05-21] MEDS ORDERED: HYG/25 PO (10:36)
[2017-05-21] MEDS ORDERED: AMPH10TA2 PO (10:36)
[2017-05-21] MEDS ORDERED: MTR600 PO (10:37)
[2017-05-21] MEDS ORDERED: OXYC-57 PO (10:37)
[2017-05-21] MEDS ORDERED: PRAV20TA PO (10:37)
[2017-05-21] MEDS ORDERED: ATV5 PO (10:37)
[2017-05-21] MEDS ORDERED: DRGTP25 TD (10:37)
[2017-05-21] MEDS ORDERED: AMIT25TA9 PO (10:37)
[2017-05-21 10:59] VITALS: BP 124/67; PULSE 73; TEMP 37; O2SAT 94
[2017-05-21 11:07] VITALS: BP 113/66; PULSE 60; TEMP 36.9; O2SAT 95
--- NOTE | 2017-05-21 11:07 | Discharge Instructions ---
Discharge Instructions Date of Service May 21, 2017. Admission Reason for Admission: Left hamstring rupture Discharge Discharge Diagnosis / Problem: Left hamstring rupture, pain, anxiety, hypertension Discharge Goals Goal(s): Improve function, Therapeutic intervention (surgery at [facility]) Activity Recommendations Activity Limitations: per Instructions/Follow-up section Lifting Limitations: until after follow-up appointment Exercise/Sports Limitations: until after follow-up appointment Shower/Bathe: no limitations Driving or Machine Use: no driving until off of narcotics Weightbearing Status: Left weightbearing (as tolerated) . Instructions / Follow-Up Instructions / Follow-Up Medications: - FENTANYL PATCH: apply every three days, 25mcg, could always increase dose to 50mcg if you are still having a lot of breakthrough pain - PERCOCET: 5/325mg, can use 1-2 tablets every 4 hours - ATIVAN: 0.5mg every 8 hours as needed for anxiety - IBUPROFEN: 600mg every 8 hours to decrease inflammation, take with food new prescriptions for all your home medications Left Hamstring tear: pain control, ice for 20 minutes at a time, 4-5 times a day wear left knee brace to keep knee in flexion, use walker for ambulation follow up closely with orthopedic surgery in [place] for repair if you experience constipation with narcotics, take Miralax once a day, stay well hydrated Current Hospital Diet Patient's current hospital diet: AHA Diet (Heart Healthy) Discharge Diet Recommended Diet: AHA Diet (Heart Healthy) Pending Studies Studies pending at discharge: no Medical Emergencies . Who to Call and When: Medical Emergencies: If at any time you feel your situation is an emergency, please call 911 immediately. . Non-Emergent Contact Non-Emergency issues call your: Primary Care Provider, Surgeon Call Non-Emergent contact if: your pain is not controlled, your pain is worsening, you have any medication questions . . "Provider Documentation" section prepared by Fred Rachel. . VTE Core Measure Inpt VTE Proph given/why not?: SCD's [place] Drug Monitoring Program Search Results: no issues identified
[2017-05-21] MEDS ORDERED: HYDROmorphone INJ 1 MG/ML SYR IV ONE (11:30)
[2017-05-21] MEDS: CARISOPRODOL 350 MG TAB PO PRN (11:36)
--- NOTE | 2017-05-21 13:41 | Medical Student: [facility] ---
Discharge Summary Admission Date: May 20, 2017 at 14:24 Discharge Date: May 21, 2017 Discharge Disposition: Home Principal Diagnosis: Hamstring Tear Problems/Secondary Diagnoses: (1) Asthma, Unspecified Status: Chronic (2) Hyperlipidemia Nec/Nos Status: Chronic (3) Hypertension Nos Status: Chronic (4) PCOS (polycystic ovarian syndrome) Status: Chronic Medications: Amlodipine (Norvasc), 10 MG PO DAILY Amphetamine-Dextroamphetamine 10MG (Adderall 10MG), 1 TAB PO DAILY Aspirin (Aspirin EC Low Dose), 81 MG PO QAM Chlorthalidone (Hygroton), 25 MG PO QAM Lisinopril (Lisinopril), 20 MG PO BID Nebivolol Hcl (Bystolic), 10 MG PO DAILY Pravastatin (Pravachol ), 20 MG PO HS Scheduled PRN Carisoprodol (Carisoprodol), 350 MG PO Q8H PRN for muscle pain/headache Clonidine Hcl (Catapres), 0.1 MG PO BID PRN for PRN Zolpidem Tartrate (Ambien), 5-10 MG PO HS PRN for Sleep New Medications: - FENTANYL PATCH: apply every three days, 25mcg, could always increase dose to 50mcg if you are still having a lot of breakthrough pain - PERCOCET: 5/325mg, can use 1-2 tablets every 4 hours - ATIVAN: 0.5mg every 8 hours as needed for anxiety - IBUPROFEN: 600mg every 8 hours to decrease inflammation, take with food Discharge Exam Review of Systems: Constitutional: No fever, No chills, No sweats, No weight loss ENT: No nasal symptoms, No sore throat Respiratory: No cough, No sputum, No wheezing, No shortness of breath, No dyspnea on exertion Cardiovascular: No chest pain, No palpitations Abdomen: + constipation, No pain, No nausea, No vomiting, No diarrhea Musculoskeletal: + muscle pain (Left hamstrings), + swelling (left buttocks , thigh) Genitourinary - Female: No dysuria, No urinary frequency Psychiatric: + anxiety Integumentary: No rash, No itch Physical Exam: General Appearance: WD/WN, no apparent distress Eyes: PERRL, EOMI ENT: hearing grossly normal, pharynx normal Neck: no adenopathy, thyroid normal, no JVD Respiratory/Chest: chest non-tender, lungs clear, normal breath sounds, no respiratory distress Cardiovascular: regular rate, rhythm, no edema, no murmur Abdomen / GI: normal bowel sounds, non tender, soft, no organomegaly Extremities: no pedal edema, + swelling (decreased ROM of left leg. significant pain. ), + pertinent finding Neurologic/Psychiatric: alert, normal mood/affect, oriented x 3, + pertinent finding (anxious) Skin: normal color, warm/dry, no rash Hospital Course Pt presented to the [facility] 05/20/17 after a fall at home, in which she tore all three heads of her left hamstring muscle. Her pain was difficult to control and she was admitted for orthopedic evaluation. She preferred to seek treatment in [place] for her hamstring tear, therefore her pain was controlled in order for discharge home with PO Percocet 5/325 q 4 hrs PRN and Fentnyl 25 mcg patch. She was also given 0.5mg of ativan q 8 hrs PRN. She also requested refills of all of her home meds to take to [place]. Total Time Spent: Greater than 30 minutes This includes examination of the patient, discharge planning, medication reconciliation, and communication with other providers. Discharge Instructions Please refer to the electronic Patient Visit Report (Discharge Instructions) for additional information. Follow-Up Take your medications as prescribed. Try to stay ahead of the pain. Use your left knee brace. Can ice as needed as well. Take miralax for constipation that can develop with pain medication.
--- NOTE | 2017-05-21 15:41 | Discharge Summary ---
Discharge Summary Date of Service May 21, 2017. Discharge Summary Admission Date: May 20, 2017 at 14:24 Discharge Date: May 21, 2017 Discharge Disposition: Home Principal Diagnosis: Left hamstring rupture Problems/Secondary Diagnoses: Hypertension Anxiety Procedures: none Consultations: Orthopedic surgery Orthotics PT/OT Medication Reconciliation New Medications: Fentanyl (Fentanyl) 25 Mcg Tdsy 25 MCG TD Q72H, #10 PATCH 0 Refills Ibuprofen (Ibuprofen) 600 Mg Tab 600 MG PO TID, #60 TAB 0 Refills Lorazepam (Lorazepam) 0.5 Mg Tab 0.5 MG PO Q8 PRN for Anxiety, #90 TAB 0 Refills Oxycodone/Acetaminophen 5MG/325MG (Percocet 5MG/325MG) Tab 1-2 TAB PO Q4H PRN for Pain, #60 TAB 0 Refills PAIN Changed Medications: Clonidine Hcl (Catapres) 0.1 Mg Tab 0.1 MG PO BID PRN for PRN MDD 0.2mg, #60 TAB 1 Refill (Changed from: Refills: ) Continued Medications: Amitriptyline Hcl (Elavil) 25 Mg Tab 25 MG PO HS PRN for Migraine, #30 TAB 3 Refills (This prescription has been renewed) Amlodipine (Norvasc) 10 Mg Tab 10 MG PO DAILY, #30 TAB 3 Refills (This prescription has been renewed) Amphetamine-Dextroamphetamine 10MG (Adderall 10MG) 1 Tab Tab 1 TAB PO DAILY for 30 Days, #30 TAB 0 Refills (This prescription has been renewed) Aspirin (Aspirin EC Low Dose) 81 Mg Ectab 81 MG PO QAM, #30 2 Refills Carisoprodol (Carisoprodol) 350 Mg Tab 350 MG PO Q8H PRN for muscle pain/headache, #30 TAB 0 Refills (This prescription has been renewed) Chlorthalidone (Hygroton) 25 Mg Tab 25 MG PO QAM, #30 TAB 3 Refills (This prescription has been renewed) Lisinopril (Lisinopril) 40 Mg Tab 20 MG PO BID, #30 TAB 3 Refills (This prescription has been renewed) Nebivolol Hcl (Bystolic) 10 Mg Tab 10 MG PO DAILY, #30 TAB 3 Refills (This prescription has been renewed) Pravastatin (Pravachol ) 20 Mg Tab 20 MG PO HS for 30 Days, #30 TAB 3 Refills (This prescription has been renewed) Zolpidem Tartrate (Ambien) 5 Mg Tab 5-10 MG PO HS PRN for Sleep, #30 TAB 0 Refills (This prescription has been renewed) Discharge Exam Patient doing better with Fentanyl patch with Percocet for breakthrough pain. PT/OT showed her how to maneuver with rolling walker. Provided patient with all new prescriptions for her medications since she is going to [place]. Visited with patient's sister and parents at time of discharge, all questions answered. Patient received a dose of Dilaudid 1mg IV prior to leaving to help with pain in car ride. Review of Systems: Constitutional: + weakness, + fatigue Eyes: No worsening of vision, No eye pain, No redness, No discharge, No diplopia, No problem reported ENT: No hearing loss, No unusual epistaxis, No nasal symptoms, No sore throat, No tinnitus, No dental problems, No trouble swallowing, No problem reported Respiratory: No cough, No sputum, No wheezing, No shortness of breath, No dyspnea on exertion, No dyspnea at rest, No hemoptysis, No problem reported Cardiovascular: No chest pain, No orthopnea, No PND, No edema, No claudication, No palpitations, No problem reported Abdomen: No pain, No nausea, No vomiting, No diarrhea, No constipation, No GI bleeding, No problem reported Musculoskeletal: + joint pain, + muscle pain (left thigh) Genitourinary - Female: No dysuria, No urinary frequency, No urinary urgency , No urinary incontinence, No urinary retention, No hematuria Neurologic: No memory loss, No paralysis, No weakness, No numbness/tingling , No vertigo, No balance problems, No problem reported Psychiatric: + depression symptoms, + anxiety, No anhedonism, No insomnia, No substance abuse, No problem reported Endocrine: No fatigue, No excessive thirst, No excessive urination, No problem reported Hematologic / Lymphatic: No abnormal bleeding/bruising, No clotting problems , No swollen lymph nodes, No night sweats, No problem reported Integumentary: No rash, No itch, No new/changing skin lesions, No color change, No bleeding, No problem reported Physical Exam: General Appearance: no apparent distress, + obese Eyes: normal inspection, EOMI, sclerae normal ENT: normal ENT inspection, hearing grossly normal, pharynx normal Neck: supple, no adenopathy, no JVD, trachea midline Respiratory/Chest: chest non-tender, lungs clear, normal breath sounds, no respiratory distress, no accessory muscle use Cardiovascular: regular rate, rhythm, no edema, no gallop, no JVD, no murmur , normal peripheral pulses Abdomen / GI: normal bowel sounds, non tender, soft, no organomegaly Extremities: no calf tenderness, normal capillary refill, no pedal edema, pelvis stable, + pertinent finding (left posterior thigh tender, decreased ROM, left knee in brace with flexion) Neurologic/Psychiatric: scoop driver II-XII nml as tested, no motor/sensory deficits , alert, normal reflexes, + pertinent finding (tearful, anxious at times) Skin: normal color, warm/dry, no rash Hospital Course 46 y/o F Hx HTN, HPL, CVA - presents following a slip and fall onto her L side leading to severe pain which is most prominent over her L lower gluteal area. She cannot presently ambulate due to the pain and is having difficulty getting comfortable in any position. She denies any symptoms preceding her fall such as CP, palpitations or lightheadedness. A pelvic XR is presently equivocal for an inferior pelvic fracture and clinical exam may be more consistent with a muscle or tendon injury. 1) Left hamstring rupture with hemorrhage orthopedic surgery recommending surgical repair, patient wants to have it done at [facility] d/c home with sister and parents will treat pain with Fentanyl patch 25mcg and Percocet 1-2 tabs q4 PRN if still with a great deal of breakthrough pain, could increase Fentanyl to 50mcg with two patches ibuprofen 600mg TID with meals ice several times a day follow up with orthopedic surgery in [place] for evaluation for surgery 2) HTN - well controlled during admission continue Norvasc, Lisinopril, Bystolic, Chlorthalidone 3) HPL - cont statin therapy 4) Smoker - cessation advice prior to DC 5) Anxiety - tearful and worried about her injury, medical expenses, needing rehab potentially Ativan 0.5mg q8 working well, provided with script Total Time Spent: Greater than 30 minutes This includes examination of the patient, discharge planning, medication reconciliation, and communication with other providers. Discharge Instructions Please refer to the electronic Patient Visit Report (Discharge Instructions) for additional information. Follow-Up Orthopedic surgery in [place]
[2017-05-23] MEDS ORDERED: FENTANYL PATCH REMOVE & WASTE SCH (14:59)
== END 2017-05-21 12:45 | disposition home or self-care (01) | DRG 537 ==
LOC: C.EDB 00:33 → C.MSN 03:55 → ENRESERV 04:29 → OBSVTOIN 05-20 14:24
PROVIDERS: ADMIT Internal Medicine; ATTEND Internal Medicine
DX: S76.312A Strain of muscle, fascia and tendon of the posterior muscle group at thigh level, left thigh, initial encounter (principal); N17.9 Acute kidney failure, unspecified; J45.909 Unspecified asthma, uncomplicated; Z85.41 Personal history of malignant neoplasm of cervix uteri; I10 Essential (primary) hypertension; Z86.73 Personal history of transient ischemic attack (TIA), and cerebral infarction without residual deficits; E78.5 Hyperlipidemia, unspecified; F17.200 Nicotine dependence, unspecified, uncomplicated; Z79.82 Long term (current) use of aspirin; F41.9 Anxiety disorder, unspecified; I95.9 Hypotension, unspecified; Y92.019 Unspecified place in single-family (private) house as the place of occurrence of the external cause; Y93.K9 Activity, other involving animal care; W01.0XXA Fall on same level from slipping, tripping and stumbling without subsequent striking against object, initial encounter

== ENCOUNTER → 2017-06-03 | Outpatient (CLI) | payer OTHER ==
[~2017-06-03] MED LIST changes: +AMIT25TA9 PO; +ATV5 PO; +DRGTP25 TD; +MTR600 PO; +OXYC-57 PO
--- NOTE | 2017-06-03 11:17 | DIAGNOSTIC IMAGING REPORT ---
TWO VIEW CHEST CLINICAL HISTORY: Preoperative examination. FINDINGS: PA and lateral chest radiographs are compared to study dated 07/09/2016. The cardiomediastinal silhouette is unremarkable. The lungs and pleural spaces are clear. There is no pneumothorax. The bony thorax appears intact. Degenerative change is seen throughout the thoracic spine. Calcific tendinopathy is noted in the right shoulder. IMPRESSION: No active disease in the chest. Electronically signed by: Sandeep Richards M.D. 06/03/2017 11:16 AM Dictated Date/Time: 06/03/2017 11:16 AM
== END | disposition home or self-care (01) ==
LOC: C.RAD 10:38
PROVIDERS: ATTEND Nurse Practitioner
DX: Z01.818 Encounter for other preprocedural examination (principal); S76.319A Strain of muscle, fascia and tendon of the posterior muscle group at thigh level, unspecified thigh, initial encounter; X58.XXXA Exposure to other specified factors, initial encounter

== ENCOUNTER → 2017-06-03 | Outpatient (CLI) | payer OTHER ==
[2017-06-03 12:38] LABS: ALT/SGPT 25 U/L (12-78); BLOOD UREA NITROGEN 12 mg/dl (7-18); BUN/CREATININE RATIO 18.9 (10-20); CALCIUM 9.1 mg/dl (8.5-10.1); CARBON DIOXIDE 28 mmol/L (21-32); CHLORIDE 109 mmol/L (98-107); CREATININE 0.63 mg/dl (0.60-1.20); GLUCOSE 89 mg/dl (70-99); POTASSIUM 3.5 mmol/L (3.5-5.1); SODIUM 143 mmol/L (136-145)
[2017-06-03 12:41] LABS: ALB/GLOB RATIO 0.9 (0.9-2); ALKALINE PHOSPHATASE 60 U/L (45-117); AST/SGOT 14 U/L (15-37)
[2017-06-03 13:10] LABS: BASO % 0.6 %; BASO ABS # 0.04 K/uL (0-0.2); COMPLETE YES; HEMATOCRIT 37.8 % (37-47); IG% 0.3 %; LYMPH % 36.6 %; MEAN CELL VOLUME 91.7 fL (80-100); MEAN CORPUSCULAR HEMOGLOBIN 30.1 pg (25-34); MEAN CORPUSCULAR HGB CONC 32.8 g/dl (32-36); MEAN PLATELET VOLUME 10.4 fL (7.4-10.4); MONO % 7.2 %; NEUT % 52.3 %; PLATELET COUNT 301 K/uL (130-400); RED BLOOD COUNT 4.12 M/uL (4.2-5.4); WHITE BLOOD COUNT 7.11 K/uL (4.8-10.8)
== END | disposition home or self-care (01) ==
LOC: C.LABBFT 08:44
PROVIDERS: ATTEND Specialist
DX: Z01.818 Encounter for other preprocedural examination (principal); S76.012A Strain of muscle, fascia and tendon of left hip, initial encounter; X58.XXXA Exposure to other specified factors, initial encounter